=== PATIENT | male | born 1940 | race Caucasian/White ===

== ENCOUNTER → 2019-06-28 | Outpatient (CLI) | payer MEDICARE ==
[~2019-06-28] MED LIST: ASPIR 8181 MG PO; ATENOLOL100 MG PO; ATORVASTATIN CA80 MG PO; DIGOXIN125 MCG PO; GLIPIZIDE5 MG PO; LISINOPRIL10 MG PO; ZETIA10 MG PO
--- NOTE | 2019-06-28 17:07 | Diagnostic Imaging Report ---
TECHNIQUE: Magnetic resonance imaging of the RIGHT KNEE was performed WITHOUT injected contrast. HISTORY: PAIN IN RIGHT KNEE , anterior knee pain, swelling, 2 weeks COMPARISON: None available. FINDINGS: LIGAMENTS AND TENDONS: ACL: Prominent thickening and increased intrasubstance signal, compatible with marked mucoid degeneration. PCL: Increased intrasubstance signal of the anterolateral band, compatible with remote injury. Collateral ligaments: Intact Iliotibial band: Unremarkable Popliteal tendon: Intact Extensor mechanism: Intact, intrasubstance degeneration of the proximal patellar tendon. JOINT: Menisci: Medial: High-grade attenuation, near complete to complete, of the posterior horn near the tibial root attachment, mild peripheral extrusion of the body. Lateral: Intact Articular Cartilage: Medial Compartment: High-grade to full-thickness erosions of the weightbearing cartilage. Lateral Compartment: Superficial erosions of the weightbearing cartilage. Patellofemoral Compartment: Full-thickness erosion of the superior patellar cartilage. Joint Fluid: Synovitis and small nonspecific joint effusion, minimally distended Bazan's cyst.. BONES: No focal or infiltrative bone marrow replacing abnormality. No acute fracture. SOFT TISSUES: Anterior predominant nonspecific soft tissue swelling, 0.6 cm (AP) x 1.2 cm (ML) x 0.6 cm (CC) fluid signal intensity overlying the lateral aspect of the junction of the patella with the distal quadriceps tendon. IMPRESSION: 1. Anterior nonspecific soft tissue edema with small ganglion cyst associated with the distal quadriceps enthesis versus loculated prepatellar bursitis. 2. Medial and patellofemoral compartment predominant tricompartmental degenerative changes, including degenerative tearing of the posterior root of the medial meniscus. 3. Mild proximal patellar tendinosis. Signed by: Dr. Payam Bolton D.O., M.M.M. on 06/28/2019 5:03 PM
== END ==
LOC: MRI 14:51
PROVIDERS: ATTEND Family Medicine
DX: M25.561 Pain in right knee (principal)

== ENCOUNTER 2021-11-23 14:09 | Inpatient (IN) | payer MEDICARE ==
[~2021-11-23] VITALS: Ht 182.9 cm; Wt 83.9 kg
[2021-11-23] MEDS ORDERED: DEXTROSE 50% SYRINGE 50 ML IV STA (14:24)
[2021-11-23] MEDS ORDERED: OCTREOTIDE ACETATE 0.05 MG/ML AMP SQ STA (14:29)
[2021-11-23] MEDS ORDERED: DEXTROSE 50% SYRINGE 50 ML IV ONE (14:30)
[2021-11-23 14:31] LABS: BASOPHILS % 0.5 % (0.0-1.0); EOSINOPHILS # (AUTO) 0.2 (0.0-0.4); EOSINOPHILS % 2.1 % (0.0-6.0); HEMATOCRIT 51.5 % (38.2-49.6); HEMOGLOBIN 15.8 g/dL (14.0-18.0); LYMPHOCYTES # (AUTO) 1.7 (1.0-3.2); LYMPHOCYTES % 21.2 % (18.0-39.1); MEAN CORPUSCULAR HEMOGLOBIN 28.1 pg (28-32); MEAN CORPUSCULAR HGB CONC 30.7 g/dL (31-35); MEAN CORPUSCULAR VOLUME 91.6 fL (81-99); MONOCYTES # (AUTO) 0.6 (0.2-0.8); MONOCYTES % 6.8 % (4.4-11.3); NEUTROPHILS # (AUTO) 5.6 (2.1-6.9); NEUTROPHILS % 69.2 % (38.7-80.0); PLATELET COUNT 287 x10e3/uL (140-360); RED BLOOD COUNT 5.62 x10e6/uL (4.3-5.7); RED CELL DISTRIBUTION WIDTH 14.6 % (11.7-14.4)
[2021-11-23] MEDS ORDERED: DEXTROSE 5% 1,000 ML IV SCH (14:45)
[2021-11-23 14:46] LABS: ALBUMIN 3.9 g/dL (3.5-5.0); ALBUMIN/GLOBULIN RATIO 1.2 (0.8-2.0); ANION GAP 15.6 mmol/L (8-16); CALCIUM 9.1 mg/dL (8.4-10.2); CREATININE, SERUM 1.77 mg/dL (0.72-1.25); POTASSIUM 4.6 mmol/L (3.5-5.1)
[2021-11-23 15:35] LABS: INR 1.28; PROTHROMBIN TIME 16.9 seconds (11.9-14.5)
[2021-11-23 15:36] LABS: PARTIAL THROMBOPLASTIN TIME 48.9 seconds (23.8-35.5)
[2021-11-23 16:45] LABS: CLARITY,URINE SL CLOUDY (CLEAR); COLOR,URINE STRAW (YELLOW); KETONES,URINE NEGATIVE (NEGATIVE); LEUKOCYTE ESTERASE ,URINE NEGATIVE (NEGATIVE); PROTEIN,URINE DIPSTICK NEGATIVE (NEGATIVE); URINE UROBILINOGEN 0.2 mg/dL (0.2 - 1)
[2021-11-23 16:59] LABS: NITRITE,URINE NEGATIVE (NEGATIVE)
[2021-11-23] MEDS ORDERED: DEXTROSE 50% SYRINGE 50 ML IV PRN (17:00)
[2021-11-23] MEDS ORDERED: ONDANSETRON HCL INJ 2MG/ML 2ML 2 MG/ML VIAL IV PRN (17:00)
[2021-11-23] MEDS: DEXTROSE 5%/0.9% SOD CHL 1,000 ML IV SCH (17:11)
[2021-11-23] MEDS: OCTREOTIDE ACETATE 0.05 MG/ML AMP SQ SCH ×2 (17:13→23:45)
[2021-11-23] MEDS ORDERED: GABAPENTIN600 MG PO (18:22)
[2021-11-23] MEDS ORDERED: GLIPIZIDE5 MG PO (18:22)
[2021-11-23] MEDS ORDERED: XARELTO20 MG PO (18:29)
[2021-11-23] MEDS ORDERED: METOPROLOL SUC100 MG PO (18:29)
[2021-11-23 20:20] VITALS: BP 144/98
[2021-11-23 21:20] VITALS: BP 144/98
[2021-11-23 23:52] VITALS: BP 116/75
[2021-11-24 02:02] LABS: CREATINE KINASE MB 2.8 ng/mL (0-5.0)
[2021-11-24] MEDS: DEXTROSE 5%/0.9% SOD CHL 1,000 ML IV SCH (04:02)
[2021-11-24 04:23] VITALS: BP 132/76
[2021-11-24 05:21] LABS: BASOPHILS % 0.7 % (0.0-1.0); EOSINOPHILS # (AUTO) 0.2 (0.0-0.4); EOSINOPHILS % 2.9 % (0.0-6.0); HEMATOCRIT 43.8 % (38.2-49.6); HEMOGLOBIN 14.1 g/dL (14.0-18.0); LYMPHOCYTES # (AUTO) 1.6 (1.0-3.2); MEAN CORPUSCULAR HEMOGLOBIN 28.7 pg (28-32); MEAN CORPUSCULAR HGB CONC 32.2 g/dL (31-35); MEAN CORPUSCULAR VOLUME 89.2 fL (81-99); MONOCYTES # (AUTO) 0.5 (0.2-0.8); MONOCYTES % 9.2 % (4.4-11.3); NEUTROPHILS # (AUTO) 3.4 (2.1-6.9); NEUTROPHILS % 59.5 % (38.7-80.0); PLATELET COUNT 192 x10e3/uL (140-360); RED BLOOD COUNT 4.91 x10e6/uL (4.3-5.7); RED CELL DISTRIBUTION WIDTH 14.4 % (11.7-14.4)
[2021-11-24 05:49] LABS: ALBUMIN 3.2 g/dL (3.5-5.0); ALBUMIN/GLOBULIN RATIO 1.2 (0.8-2.0); ANION GAP 13.1 mmol/L (8-16); CALCIUM 8.6 mg/dL (8.4-10.2); CREATININE, SERUM 1.29 mg/dL (0.72-1.25); POTASSIUM 4.1 mmol/L (3.5-5.1)
[2021-11-24 06:12] LABS: CREATINE KINASE MB 3.1 ng/mL (0-5.0)
[2021-11-24] MEDS: OCTREOTIDE ACETATE 0.05 MG/ML AMP SQ SCH (06:15)
[2021-11-24 08:11] VITALS: BP 151/88
[2021-11-24 08:12] VITALS: BP 151/88
[2021-11-24 11:42] VITALS: BP 146/76
[2021-11-24] MEDS ORDERED: TRADJENTA5 MG PO (13:11)
[2021-11-24] MEDS ORDERED: GABAPENTIN 300 MG CAP PO SCH (15:00)
[2021-11-24] MEDS ORDERED: NON-FORMULARY MEDICATION (Gabapentin 600 MG) PO SCH (15:00)
[2021-11-24] MEDS ORDERED: LISINOPRIL 20 MG TAB PO SCH (21:00)
[2021-11-24] MEDS ORDERED: NON-FORMULARY MEDICATION (Atorvastatin Calcium 80 MG) PO SCH (21:00)
[2021-11-24] MEDS ORDERED: ATORVASTATIN 40 MG TAB PO SCH (21:00)
[2021-11-25] MEDS ORDERED: NON-FORMULARY MEDICATION (Metoprolol Succinate 100 MG) PO SCH (09:00)
[2021-11-25] MEDS ORDERED: RIVAROXABAN 15 MG TABLET PO SCH (09:00)
[2021-11-25] MEDS ORDERED: METOPROLOL SUCCINATE 50 MG TAB XL PO SCH (09:00)
== END 2021-11-24 15:53 | disposition home or self-care (01) | DRG 637 ==
LOC: ER 14:15 → ERHOLD 17:23 → MED/SURG 20:22
DX: E11.649 Type 2 diabetes mellitus with hypoglycemia without coma (principal); G93.41 Metabolic encephalopathy; I48.20 Chronic atrial fibrillation, unspecified; I25.10 Atherosclerotic heart disease of native coronary artery without angina pectoris; E78.5 Hyperlipidemia, unspecified; T38.3X5A Adverse effect of insulin and oral hypoglycemic [antidiabetic] drugs, initial encounter; E11.22 Type 2 diabetes mellitus with diabetic chronic kidney disease; I12.9 Hypertensive chronic kidney disease with stage 1 through stage 4 chronic kidney disease, or unspecified chronic kidney disease; N18.2 Chronic kidney disease, stage 2 (mild); I49.5 Sick sinus syndrome; Z79.84 Long term (current) use of oral hypoglycemic drugs; Y92.019 Unspecified place in single-family (private) house as the place of occurrence of the external cause; Z20.822 Contact with and (suspected) exposure to COVID-19
CPT/HCPCS: 36415; 71045; 80053; 80061; 81001; 82550; 82553; 82948; 83735; 84484; 85025; 85610; 85730; 93005; 94799; 99284; J2354; J7042; J7799; U0002